=== PATIENT | female | born 2000 | race American Indian/Alaskan Native ===

== ENCOUNTER 2021-09-16 17:57 | Emergency (ER) | payer SELFPAY ==
--- NOTE | 2021-09-16 19:20 | Emergency Department Report ---
HPI - General Chief Complaint: Pain General Time Seen by Provider: 09/16/21 19:05 - HPI HPI: MSE 5 The patient is a 21-year-old female present with a chief complaint of chest pain. The patient states for she has had pain in the left chest has been cons tant for the past 6 days. Patient describes the pain as sharp in nature and worsens whenever she lies back. Patient denies pleurisy cough or fever. Patient denies diarrhea but admits to nausea vomiting for the past 2 days after visiting her primary physician who diagnosed her with costochondritis. The patient states she has not been vaccinated against Covid she has no known sick contacts. Patient currently denies chest pain ED Past Medical Hx - Past Medical History Previous Medical History?: No - Surgical History Past Surgical History?: No - Family History Family history: no significant - Social History Smoking Status: Never Smoker Substance Use Type: Alcohol (Occasional), Marijuana - Medications Home Medications: Home Medications Medication Instructions Recorded Confirmed Last Taken Type Ibuprofen [Motrin 800 MG tab] 800 mg PO Q8HR PRN #20 tablet 09/16/21 Unknown Rx Promethazine [Phenergan] 25 mg PO Q6HR PRN #20 tab 09/16/21 Unknown Rx Promethazine [Phenergan] 25 mg [place] Q6HR PRN #5 supp.rect 09/16/21 Unknown Rx levoFLOXacin [Levaquin TAB] 500 mg PO QDAY #3 tablet 09/16/21 Unknown Rx traMADoL [Ultram] 50 mg PO Q6HR PRN #10 tablet 09/16/21 Unknown Rx ED Review of Systems ROS: Stated complaint: PAIN UNDER BREAST BONE Other details as noted in HPI Constitutional: denies: fever Eyes: denies: eye pain ENT: denies: throat pain Respiratory: denies: shortness of breath Cardiovascular: chest pain Endocrine: no symptoms reported Gastrointestinal: nausea, vomiting Genitourinary: denies: dysuria Musculoskeletal: denies: back pain Neurological: denies: headache Physical Exam - Physical Exam Vital Signs: Vital Signs 09/16/21 18:55 Temperature 98.2 F Pulse Rate 72 Respiratory 18 Rate Blood Pressure 111/76 O2 Sat by Pulse 99 Oximetry Physical Exam: GENERAL: The patient is well-developed well-nourished female lying on stretcher not appearing to be in acute distress. [] HEENT: Normocephalic. Atraumatic. Extraocular motions are intact. Patient has moist mucous membranes. NECK: Supple. Trachea midline CHEST/LUNGS: Clear to auscultation. There is no respiratory distress noted. HEART/CARDIOVASCULAR: Regular. There is no tachycardia. There is no gallop rub or murmur. ABDOMEN: Abdomen is soft, nontender. Patient has normal bowel sounds. There is no abdominal distention. SKIN: There is no rash. There is no edema. There is no diaphoresis. NEURO: The patient is awake, alert, and oriented. The patient is cooperative. The patient has no focal neurologic deficits. The patient has normal speech. GCS 15 MUSCULOSKELETAL: There is no evidence of acute injury. ED Course Vital Signs 09/16/21 18:55 Temperature 98.2 F Pulse Rate 72 Respiratory 18 Rate Blood Pressure 111/76 O2 Sat by Pulse 99 Oximetry ED Medical Decision Making - Lab Data Result diagrams: 09/16/21 19:16 09/16/21 19:16 Laboratory Tests 09/16/21 09/16/21 09/16/21 19:16 19:16 19:16 WBC 6.6 RBC 4.76 Hgb 12.9 Hct 39.7 MCV 83 MCH 27 L MCHC 33 RDW 14.8 Plt Count 349 Lymph % (Auto) 27.8 Woodruff % (Auto) 9.6 H Eos % (Auto) 0.1 Baso % (Auto) 1.2 Lymph # (Auto) 1.8 Woodruff # (Auto) 0.6 Eos # (Auto) 0.0 Baso # (Auto) 0.1 Seg Neutrophils % 61.3 Seg Neutrophils # 4.1 D-Dimer < 135.00 Sodium 136 L Potassium 4.1 Chloride 96.6 L Carbon Dioxide 26 Anion Gap 18 BUN 6 L Creatinine 0.8 Estimated GFR > 60 BUN/Creatinine Ratio 8 Glucose 99 Calcium 9.6 Total Creatine Kinase 67 CK-MB (CK-2) < 1.0 CK-MB (CK-2) Rel Index 1.4 Troponin T < 0.010 NT-Pro-B Natriuret Pep 182.8 HCG, Qual Urine Color Urine Turbidity Urine pH Ur Specific [place] Urine Protein Urine Glucose (UA) Urine Ketones Urine Blood Urine Nitrite Urine Bilirubin Urine Urobilinogen Ur Leukocyte Esterase Urine WBC (Auto) Urine RBC (Auto) U Epithel Cells (Auto) Urine Bacteria (Auto) Urine Mucus 09/16/21 09/16/21 19:16 19:46 WBC RBC Hgb Hct MCV MCH MCHC RDW Plt Count Lymph % (Auto) [place] % (Auto) Eos % (Auto) Baso % (Auto) Lymph # (Auto) [place] # (Auto) Eos # (Auto) Baso # (Auto) Seg Neutrophils % Seg Neutrophils # D-Dimer Sodium Potassium Chloride Carbon Dioxide Anion Gap BUN Creatinine Estimated GFR BUN/Creatinine Ratio Glucose Calcium Total Creatine Kinase CK-MB (CK-2) CK-MB (CK-2) Rel Index Troponin T NT-Pro-B Natriuret Pep HCG, Qual Negative Urine Color Yellow Urine Turbidity Slightly-cloudy Urine pH 7.0 Ur Specific [place] 1.010 Urine Protein 30 mg/dl Urine Glucose (UA) Neg Urine Ketones 20 Urine Blood Lg Urine Nitrite Neg Urine Bilirubin Neg Urine Urobilinogen 2.0 Ur Leukocyte Esterase Sm Urine WBC (Auto) 9.0 H Urine RBC (Auto) 3.0 U Epithel Cells (Auto) 10.0 Urine Bacteria (Auto) 4+ Urine Mucus Few - EKG Data -: EKG Interpreted by Me EKG shows normal: sinus rhythm Rate: normal - EKG Data When compared to previous EKG there are: previous EKG unavailable Interpretation: nonspecific ST-T wave juan pablo (T wave inversions in leads V2, V3) - Radiology Data Radiology results: report reviewed (Chest x-ray), image reviewed (Chest x-ray) interpreted by me: Chest x-ray-no definite focal infiltrates, no pneumothorax [facility] [address] [place] [address] XRay Report Signed Patient: DEDRICK GUERRA MR#: [id number] : 2000 Acct:[id number] Age/Sex: 21 / F ADM Date: 09/16/21 Loc: ED Attending Dr: Ordering Physician: BARBARA JARA MD Date of Service: 09/16/21 Procedure(s): XR chest routine 2V Accession Number(s): [id number] cc: BARBARA JARA MD Fluoro Time In Minutes: CHEST 2 VIEWS INDICATION / CLINICAL INFORMATION: chest pain. COMPARISON: None available. FINDINGS: SUPPORT DEVICES: None. HEART / M EDIASTINUM: No significant abnormality. LUNGS / PLEURA: No significant pulmonary or pleural abnormality. No pneumothorax. ADDITIONAL FINDINGS: No significant additional findings. IMPRESSION: 1. No acute findings. Signer Name: Brenden Massey MD Signed: 09/16/2021 9:08 PM Workstation Name: [id number] Transcribed By: ZORAN Dictated By: BRENDEN MASSEY MD Electronically Authenticated By: BRENDEN MASSEY MD Signed Date/Time: 09/16/212107 DD/ 07 TD/TT: Print Cancel - Differential Diagnosis Pericarditis, costochondritis, GERD, ACS, PE Critical care attestation.: If time is entered above; I have spent that time in minutes in the direct care of this critically ill patient, excluding procedure time. ED Disposition Clinical Impression: Atypical chest pain, UTI (urinary tract infection) Disposition: HOME / SELF CARE / HOMELESS Is pt being admited?: No Does the pt Need Aspirin: No Condition: Stable Instructions: Nonspecific Chest Pain, Adult Additional Instructions: Return to the emergency department should you develop worsening symptoms, inability to tolerate food or liquids, high fever or any other concerns Prescriptions: levoFLOXacin [Levaquin TAB] 500 mg PO QDAY #3 tablet Ibuprofen [Motrin 800 MG tab] 800 mg PO Q8HR PRN #20 tablet PRN Reason: Pain, Moderate (4-6) Promethazine [Phenergan] 25 mg PO Q6HR PRN #20 tab PRN Reason: Nausea Promethazine [Phenergan] 25 mg [place] Q6HR PRN #5 supp.rect PRN Reason: Vomiting traMADoL [Ultram] 50 mg PO Q6HR PRN #10 tablet PRN Reason: Pain Referrals: PRIMARY CARE, [Referring] - 3-5 Days Time of Disposition: 21:21 Heart Score - HEART Score History: Slightly suspicious EKG: Non-specific Age: < 45 Risk factors: No known risk factors Troponin: < normal limit HEART Score: 1 - EKG Read Time Time EKG Completed: 19:54 EKG Read Time: 20:06
[2021-09-16 19:48] LABS: Basophils # (Auto) 0.1 K/mm3 (0.0-0.1); Basophils % (Auto) 1.2 % (0.0-1.8); Eosinophils % (Auto) 0.1 % (0.0-4.3); Hematocrit 39.7 % (30.3-42.9); Hemoglobin 12.9 gm/dl (10.1-14.3); Lymphocytes # (Auto) 1.8 K/mm3 (1.2-5.4); Lymphocytes % (Auto) 27.8 % (13.4-35.0); Mean Corpuscular HGB Conc 33 % (30-34); Mean Corpuscular Volume 83 fl (79-97); Monocytes # (Auto) 0.6 K/mm3 (0.0-0.8); Monocytes % (Auto) 9.6 % (0.0-7.3); Platelet Count 349 K/mm3 (140-440); Red Blood Count 4.76 M/mm3 (3.65-5.03); Red Cell Distribution Width 14.8 % (13.2-15.2)
[2021-09-16 20:08] LABS: BUN/Creatinine Ratio 8; Blood Urea Nitrogen 6 mg/dL (7-17); Calcium 9.6 mg/dL (8.4-10.2); Hemolysis Index 24
[2021-09-16 20:14] LABS: Creatine Kinase MB < 1.0 ng/mL (0.0-4.0)
[2021-09-16] MEDS ORDERED: IBUPROFEN 800 MG TAB PO ONE (20:14)
[2021-09-16] MEDS ORDERED: traMADol 50 MG TAB PO ONE (20:14)
[2021-09-16 20:59] LABS: Bacteria,Urine 4+ /HPF (Negative); Bilirubin,Urine NEG (Negative); Blood,Urine LG (Negative); Color,Urine Yellow (Yellow); Mucus,Urine FEW /HPF
--- NOTE | 2021-09-16 21:12 | XRay Report ---
CHEST 2 VIEWS INDICATION / CLINICAL INFORMATION: chest pain. COMPARISON: None available. FINDINGS: SUPPORT DEVICES: None. HEART / MEDIASTINUM: No significant abnormality. LUNGS / PLEURA: No significant pulmonary or pleural abnormality. No pneumothorax. ADDITIONAL FINDINGS: No significant additional findings. IMPRESSION: 1. No acute findings. Signer Name: Brenden Massey MD Signed: 09/16/2021 9:08 PM Workstation Name: [id number]
[2021-09-16 22:21] VITALS: BP 117/77
--- NOTE | 2021-09-21 10:04 | Electrocardiograph Report ---
[facility] Test Date: 2021-09-16 Test Time: 19:54:25 Pat Name: DEDRICK GUERRA Department: Room: Gender: F Supervisor Color Making: DANNY : 2000 Requested By: BARBARA JARA Order Number: [id number] Reading MD: Tasneem Quiros Measurements Intervals [place] Rate: 69 P: 39 OK: 119 QRS: 38 QRSD: 66 T: 33 QT: 382 QTc: 410 Interpretive Statements Sinus rhythm Nonspecific T abnormalities, anterior leads No previous ECG available for comparison Electronically Signed On 09-21-2021 10:04:39 EDT by Tasneem Quiros
== END 2021-09-16 22:19 | disposition home or self-care (01) ==
LOC: ED 17:57
DX: R07.89 Other chest pain (principal); N39.0 Urinary tract infection, site not specified; F12.90 Cannabis use, unspecified, uncomplicated; Z72.89 Other problems related to lifestyle
CPT/HCPCS: 36415; 71046; 80048; 81001; 82550; 82553; 83880; 84484; 84703; 85025; 85379; 87086; 93005; 99284